=== PATIENT | male | born 1965 | race Caucasian/White ===

== ENCOUNTER 2025-07-17 18:40 | Emergency (ER) | payer OTHER, SELFPAY ==
[2025-07-17 18:49] VITALS: BP 153/90
[2025-07-17 19:20] LABS: COVID-19 Antigen Negative (Negative)
[2025-07-17 20:00] VITALS: BP 145/75
[2025-07-17 20:21] LABS: Hematocrit 37.9 % (39.0-52.0); Hemoglobin 13.5 g/dL (13.0-18.0); Mean Corp Hgb Conc. 35.6 g/dL (33.0-37.0); Mean Corpuscular Volume 85.7 fL (80.0-94.0); Nucleated Red Blood Cells % 0 % (-); Platelet Count 216 10^3/uL (130-400); Red Cell Dist. Width 12.7 % (11.5-14.5)
[2025-07-17 20:36] LABS: ALT (SGPT) 30 U/L (0-50); AST (SGOT) 21 U/L (17-59); Albumin 3.5 g/dl (3.5-5.0); Alkaline Phosphatase 57 U/L (38-126); Blood Urea Nitrogen 11 mg/dl (9-20); Calcium 8.7 mg/dl (8.4-10.2); Carbon Dioxide 27 mmol/L (22-30); Chloride 101 mmol/L (98-107); Glucose 239 mg/dl (70-99); Potassium 3.5 mmol/L (3.5-5.1); Sodium 134 mmol/L (135-145); Total Protein 6.2 g/dl (6.3-8.2); eGFR > 60.00
--- NOTE | 2025-07-17 22:01 | ED.GENMED ---
History of Present Illness
General
Chief Complaint: Cold/Flu/URI Symptoms
Source: patient
Exam Limitations: none
Time Seen by Provider: 07/17/25 19:41
Nursing documentation reviewed up to this point in time: agreed with
History of Present Illness
History of Present Illness:
Patient to the emergency department with complaint of sore throat, right ear pain, and headache. He now notes swelling to the right side of his neck. Symptoms started within the last 24 hours. He states he was recently treated for bronchitis,
finishing a course of amoxicillin on 07/12. States he felt well until yesterday. He denies any fever or chills. He denies any difficulty breathing or swallowing. To ED accompanied by spouse for evaluation.
Past History
Past History
ED Past Medical History: HTN and NIDDM
Review of Systems
Review of Systems
Allergies reviewed?: Yes
All Other Systems: ROS reviewed and negative except as documented in HPI and ROS
Constitutional: Reports no symptoms
EENT: Reports sore throat and other (Right sided ear pain, headache, right sided neck swelling)
Respiratory: Reports no symptoms
Cardiac: Reports no symptoms
ABD/GI: Reports no symptoms
: Reports no symptoms
Musculoskeletal: Reports no symptoms
Skin: Reports no symptoms
Neurological: Reports no symptoms
Psychiatric: Reports no symptoms
Phy Exam
General Physical Exam
General Presentation: well appearing and mild distress
General age: appears stated age
General Skin: warm and dry
General Habitus: normal
ENT Exam
ENT Exam: EOMI, TM's normal, pharynx normal, swallowing well and other (Right side of neck is tender and swollen. Enlarged large firm submandibular node on the right.)
Cardiovascular Exam
Cardiovascular Exam: regular rate/rhythm and no edema
Pulmonary Exam
Pulmonary Exam: lungs clear and no respiratory distress
Musculoskeletal Exam
Musculoskeletal Exam: full ROM and neuro vasc intact
Skin Exam
Skin Exam: normal color, warm/dry and no rash
Psychiatric Exam
Psychiatric Exam: normal mood/affect
Course
Orders/Labs/Results
Orders:
Orders
07/17/25 18:55
COVID-19 Antigen Urgent
Source: Nasal Swab
Influenza A+B Rapid Molecular Urgent
[facility]ORGAN Source: Nasal Swab
Specimen Description:
07/17/25 20:[address]ck [address] Contrast [address] [CT Neck With Iv Contrast] Urgent
Comment:
Reason For Exam: Right neck pain and swelling.
07/17/25 20:02
CR Chest - 2 Views Urgent
Comment:
Reason For Exam: cough
07/17/25 20:03
Complete Blood Count/With Diff Urgent
Comprehensive Metabolic Panel Urgent
Rapid Strep Group A Urgent
MORGAN Source: Throat/Pharynx
Specimen Description:
Date Specimen was Collected: 07/17/25
Time Specimen was Collected: 20:02
07/17/25 21:58
Amoxicillin 875 mg/Clav 125 mg [Augmentin 875 mg/125 mg] 1 tablet PO NOW STA
Abnormal Lab Results
07/17/25
20:03
RBC 4.42 L 10^6/uL
(4.70-6.10)
Hct 37.9 L %
(39.0-52.0)
Abs Immat Gran (auto) 0.1 H 10^3/uL
(0-0.05)
Absolute Monos (auto) 0.8 H 10^3/uL
(0.1-0.6)
Immature Gran % 0.9 H %
(0-0.5)
Sodium 134 L mmol/L
(135-145)
Creatinine 0.6 L mg/dL
(0.7-1.3)
Glucose 239 H mg/dl
(70-99)
Total Protein 6.2 L g/dl
(6.3-8.2)
07/17/25 20:03
07/17/25 20:03
Vital Signs
Initial and Last Documented VS:
Initial Vital Signs
Temp Pulse Resp BP Pulse Ox
97.6 F 83 18 153/90 96
07/17/25 18:49 07/17/25 18:49 07/17/25 18:49 07/17/25 18:49 07/17/25 18:49
Last Documented Vital Signs
Temp Pulse Resp BP Pulse Ox
97.6 F 76 18 145/75 96
07/17/25 18:49 07/17/25 20:00 07/17/25 20:00 07/17/25 20:00 07/17/25 18:49
*Radiology
Radiology exam reviewed: radiology read reviewed
*Pulse Oximetry
SaO2: 96
Oxygen Mode of Delivery: Room air
Patient hypoxic: no
*Critical Care Note
Total Time (30-74mins, 75-104mins- exclusive of procedures): Not Applicable
Update Note
Update Note:
Patient to the emergency department for evaluation of sore throat headache right ear pain and swelling to the right side of his neck. Symptoms started within the last 24 hours. He denies any difficulty breathing or swallowing. He denies any fever
or chills. Labs reviewed. WBC 8.7. Glucose 239. Vital signs are stable he remains afebrile. CT of neck was completed. Result of probable right submandibular gland sialoadenitis and/or cellulitis. No collection or abscess was noted no
retropharyngeal soft tissue swelling Airways patent. Discussed these findings with patient and spouse. Will place him on a course of Augmentin 875 mg twice daily. First dose was given in ED. He will be discharged home tonight. He was given
strict instructions on signs and symptoms to return to the emergency department and he is agreeable to this plan.
ED Attending Note
-
Portions of this chart may have been created with voice recognition software.� Occasional wrong word or��sound alike� substitutions may have occurred due to the inherent limitations of voice recognition software.
Discharge Plan
Departure
Patient Disposition: Home (Routine Discharge)
Date of Disposition: 07/17/25
Time of Disposition: 21:58
Patient with high blood pressure during this ER visit?: No
Condition: Good
Covid-19: Not Applicable
Discharge Problem:
Acute sialoadenitis
Instructions: Salivary Gland Infection (DC)
Prescriptions:
New
amoxicillin-pot clavulanate 875-125 mg tablet
1 tab PO BID Qty: 20 0RF
Referrals:
Venessa Pedersen CRNP [Family Provider, General]
Activity Restrictions/Additional Instructions:
Follow-up with your family doctor. Return to the emergency department immediately for any changes in/worsening of your symptoms, especially any difficulty breathing or swallowing.
Interventions
Interventions:
*General Assessment Last Done: 07/17/25 20:04
*Neglect/Abuse Screening Last Done: 07/17/25 18:49
*ED COVID-19 Vaccine History Last Done: 07/17/25 20:04
*ED Influenza Vaccine History Last Done: 07/17/25 20:04
[facility] Risk Assessment Tool Last Done: 07/17/25 20:04
*Risk Screen - Suicide (C-SSRS) Last Done: 07/17/25 18:49
ED- Pulmonary Assessment Last Done: 07/17/25 20:04
Discharge Date and Time
Print Language: SWEDISH
[2025-07-17] MEDS: AUGMENTIN 875 MG/125 MG 1 TABLET PO (22:13)
== END 2025-07-17 22:28 | disposition home or self-care (01) ==
LOC: EMR 18:40
PROVIDERS: Nurse Practitioner; EMERGENCY PHYSICIAN Emergency Medicine; FAMILY PHYSICIAN Nurse Practitioner Adult Health
DX: K11.21 Acute sialoadenitis (principal); R51.9 Headache, unspecified; H92.01 Otalgia, right ear; M79.89 Other specified soft tissue disorders; Z11.52 Encounter for screening for COVID-19; E11.9 Type 2 diabetes mellitus without complications; I10 Essential (primary) hypertension; Z85.828 Personal history of other malignant neoplasm of skin
CPT/HCPCS: 99284; 70491; 71046; 80053; 85025; 87070; 87502; 87811; 87880; Q9967